=== PATIENT | female | born 1990 | race African-American/Black ===

== ENCOUNTER 2018-07-02 16:58 | Emergency (ER) | payer SELFPAY ==
--- NOTE | 2018-07-02 20:36 | EDM.PDOC ---
ED HPI GENERAL MEDICAL PROBLEM - General Chief Complaint: Respiratory Problem Stated Complaint: ASTHMA Time Seen by Provider: 07/02/18 19:21 Source of Information: Reports: Patient, RN Notes Reviewed History Limitations: Reports: No Limitations - History of Present Illness INITIAL COMMENTS - FREE TEXT/NARRATIVE: The patient states that she has had a cough productive of slightly yellowish phlegm for the past 3 days. She has had body aches since yesterday. She has had a sore throat since yesterday, slightly improved today. No documented fever, and she is afebrile here in the ED, however, she states that she was feeling hot today. She denies having dyspnea, but states that she had some dyspnea on exertion over the past 3 days. No nausea except when she coughs. No recent emesis. No recent constipation, diarrhea, or urinary symptoms. A friend that is staying with her was told that he has bronchitis. The patient states that she has been taking both albuterol Dulera by nebulizer and MDI over the past few days, without relief of symptoms. The patient does not have a peak flow meter or space chamber. The patient does not have a PCP; she goes to the walk-in clinic. Her vaccinations are not up-to-date. She did not receive an influenza vaccine this season. Other Treatments MINE BOSS: inhalers and nebs Frontal Headache Pain Score (Numeric/FACES): 7 - Related Data Allergies Allergy/AdvReac Type Severity Reaction Status Date / Time No Known Allergies Allergy Verified 07/02/18 18:36 Home Meds: Home Meds Albuterol Sulfate 3 ml INH ASDIRECTED 07/02/18 [History] Albuterol Sulfate [Proair Hfa] 1 puff INH ASDIRECTED 07/02/18 [History] Cetirizine [ZyrTEC] 10 mg PO DAILY 07/02/18 [History] Mometasone/Formoterol [Dulera 200 Mcg/5 Mcg Inhaler] 2 puff INH ASDIRECTED 07/02 [History] Past Medical History HEENT History: Reports: Allergic Rhinitis Respiratory History: Reports: Asthma (suspected, not tested) Social & Family History - Tobacco Use Smoking Status *Q: Current Every Day Smoker Tobacco Use Within Last Twelve Months: Cigars (Black & Mild) Years of Tobacco use: 6 Packs/Tins Daily: 0.3 - Caffeine Use Caffeine Use: Reports: Energy Drinks, Soda - Alcohol Use Alcohol Use History: No - Recreational Drug Use Recreational Drug Use: No - Living Situation & Occupation Living situation: Reports: , with Spouse Occupation: Employed ([employer]) ED ROS GENERAL - Review of Systems Review Of Systems: ROS reveals no pertinent complaints other than HPI. ED EXAM, GENERAL - Physical Exam Exam: See Below Exam Limited By: No Limitations General Appearance: Alert, WD/WN, No Apparent Distress Eye Exam: Bilateral Eye: EOMI, Normal Inspection Ears: Normal External Exam, Normal Canal, Hearing Grossly Normal, Normal TMs Nose: Normal Inspection, Normal Mucosa Throat/Mouth: Normal Inspection, Normal Lips, Normal Teeth, Normal Gums, Normal Oropharynx, Normal Voice, No Airway Compromise Head: Atraumatic, Normocephalic Neck: Normal Inspection, Supple, Non-Tender, Full Range of Motion. No: Lymphadenopathy (L), Lymphadenopathy (R) Respiratory/Chest: No Respiratory Distress, Lungs Clear, Normal Breath Sounds, No Accessory Muscle Use. No: Decreased Breath Sounds, Crackles, Rhonchi, Wheezing, Prolonged Expiration Cardiovascular: Normal Peripheral Pulses, Regular Rate, Rhythm, No Edema, No Gallop, No JVD, No Murmur, No Rub Peripheral Pulses: 4+: Radial (L), Radial (R) GI/Abdominal: Normal Bowel Sounds, Soft, Non-Tender, No Organomegaly, No Distention, No Abnormal Bruit, No Mass (Female) Exam: Deferred Rectal (Female) Exam: Deferred Back Exam: Normal Inspection, Full Range of Motion, NT Extremities: Normal Inspection, Normal Range of Motion, No Pedal Edema, Normal Capillary Refill Neurological: Alert, Oriented, Normal Cognition, No Motor/Sensory Deficits Psychiatric: Normal Affect Skin Exam: Warm, Dry, Intact, Normal Color, No Rash Course - Vital Signs Last Recorded V/S: Last Vital Signs Temp 37.2 C 07/02/18 18:31 Pulse 77 07/02/18 18:31 Resp 20 07/02/18 18:31 BP Pulse Ox 96 07/02/18 18:31 - Orders/Labs/Meds Orders: Active Orders 24 hr Category Date Time Status RT Peak Flow Measurement [RC] ASDIRECTED Care 07/02/18 19:36 Active CULTURE STREP A CONFIRMATION [RM] Stat Lab 07/02/18 19:33 Results STREP SCRN A RAPID W CULT CONF [RM] Stat Lab 07/02/18 19:33 Results - Re-Assessments/Exams Free Text/Narrative Re-Assessment/Exam: 07/02/18 20:27 Test results discussed with the patient. Both the patient's influenza swab and rapid strep test are negative. Based on her history, physical examination, and ED tests, the patient appears to have a viral URI. The patient is not suffering from an asthma exacerbation. I explained that there are no medicines to treat a viral URI, that able have to run its course. I advised against [id number] cough or cold remedies, as they have been shown to be of no benefit. The respiratory therapist provided the patient with a peak flow meter and a space chamber, and we discussed how to properly use them. I recommended that the patient check her peak flow if she is feeling dyspneic and wheezing, to determine if it is an asthma exacerbation, prior to taking albuterol. In addition, I advised the patient to eventually get pulmonary function tested, to determine if in fact she has asthma, versus some other respiratory ailment. Departure - Departure Time of Disposition: 20:29 Disposition: Home, Self-Care 01 Condition: Good Clinical Impression: Viral URI with cough - Discharge Information *PRESCRIPTION DRUG MONITORING PROGRAM REVIEWED*: Not Applicable *COPY OF PRESCRIPTION DRUG MONITORING REPORT IN PATIENT SAMARA: Not Applicable Instructions: Upper Respiratory Infection, Adult, [id number] Referrals: PCP,None [Primary Care Provider] - Forms: ED Department Discharge, ED Return to Work/School Form Additional Instructions: You were seen in the emergency room for a cough, shortness of breath, body aches , and sore throat. Workup in the ER included an influenza swab and a rapid strep test. Both your influenza swab and rapid strep test returned negative. You do not have influenza, and you do not have strep throat. Based on your history, physical examination, and ER tests, you are most likely suffering from a viral URI, also known as a common cold. You are not suffering from an asthma attack. Unfortunately, there are no medicines to treat the common cold - it will have to run its course. We do not recommend that you take any [id number] cough or cold remedies, as they have been shown to be of no benefit, but do cause side effects, such as an upset stomach. You have been provided with a peak flow meter. We recommend that you check your peak flow twice a week, even when you are feeling well. If you are feeling well, but cannot get your peak flow into the green zone, talk to your doctor, as this indicates that you may be get an asthma attack within the next 2 weeks. If you are feeling short of breath, but your peak flow is in the green zone, DO NOT take albuterol, as you are not suffering from an asthma attack. If you are feeling short of breath, and your peak flow is in the yellow or red zone, take albuterol as often as necessary to get relief and get your peak flow into the green zone. If you require albuterol more often than every 4 hours, you need to be seen by a doctor. Use your space chamber whenever you take albuterol. We recommend that you seek pulmonary function tests at some point in the future , to determine if in fact you have asthma versus some other respiratory ailment. If any other problem, please do not hesitate to return to the ER. - My Orders Last 24 Hours: My Active Orders 07/02/18 19:33 CULTURE STREP A CONFIRMATION [RM] Stat STREP SCRN A RAPID W CULT CONF [RM] Stat 07/02/18 19:36 RT Peak Flow Measurement [RC] ASDIRECTED - Assessment/Plan Last 24 Hours: My Active Orders 07/02/18 19:33 CULTURE STREP A CONFIRMATION [RM] Stat STREP SCRN A RAPID W CULT CONF [RM] Stat 07/02/18 19:36 RT Peak Flow Measurement [RC] ASDIRECTED
== END 2018-07-02 20:58 | disposition home or self-care (01) ==
LOC: JD.ED 16:58
DX: J06.9 Acute upper respiratory infection, unspecified (principal); F17.210 Nicotine dependence, cigarettes, uncomplicated
CPT/HCPCS: 87077; 87081; 87430; 87804; 99285-25

== ENCOUNTER 2018-08-06 04:06 | Emergency (ER) | payer SELFPAY ==
[2018-08-06] MEDS ORDERED: HYDROmorphone 1 MG/ML Syringe IVPUSH ONE ×2 (04:22→05:06)
[2018-08-06] MEDS ORDERED: Ondansetron 4 MG/2 ML SDV IVPUSH ONE (04:22)
[2018-08-06] MEDS ORDERED: Sodium Chloride 0.9% 1,000 ML IV SCH (04:30)
[2018-08-06] MEDS ORDERED: HYDROmorphone 1 MG/ML Syringe ONE (05:06)
--- NOTE | 2018-08-06 05:21 | EDM.PDOC ---
ED HPI GENERAL MEDICAL PROBLEM - General Chief Complaint: Upper Extremity Injury/Pain Stated Complaint: HAND INJURY Time Seen by Provider: 08/06/18 04:18 Source of Information: Reports: Patient, RN Notes Reviewed History Limitations: Reports: No Limitations - History of Present Illness INITIAL COMMENTS - FREE TEXT/NARRATIVE: The patient states that she was intoxicated, and, she is not sure how, but she fell backwards, apparently putting her right hand out to stop her fall, around 04:00 this morning. When she landed, she appears to have dislocated her right thumb at the MCP joint. She is otherwise uninjured. No prior right thumb injury. The patient's last oral solid food was around 01:30 to 2:00. The patient does not have a PCP. Right Finger-Thumb Pain Score (Numeric/FACES): 7 - Related Data Allergies Allergy/AdvReac Type Severity Reaction Status Date / Time No Known Allergies Allergy Verified 08/06/18 04:13 Home Meds: Home Meds Albuterol Sulfate [Proair Hfa] 1 puff INH ASDIRECTED 07/02/18 [History] Cetirizine [ZyrTEC] 10 mg PO DAILY 07/02/18 [History] Mometasone/Formoterol [Dulera 200 Mcg/5 Mcg Inhaler] 2 puff INH ASDIRECTED 07/02 [History] Montelukast [Singulair] 10 mg PO DAILY 08/06/18 [History] Past Medical History HEENT History: Reports: Allergic Rhinitis Respiratory History: Reports: Asthma (suspected, not tested) Social & Family History - Tobacco Use Tobacco Use Within Last Twelve Months: Cigars (Black & Mild cigars x 2012) - Caffeine Use Caffeine Use: Reports: Energy Drinks, Soda - Alcohol Use Alcohol Use History: Yes Alcohol Use Frequency: Socially (occasionally to excess) - Recreational Drug Use Recreational Drug Use: No - Living Situation & Occupation Living situation: Reports: , with Spouse Occupation: Employed ([employer]) Review of Systems - Review of Systems Review Of Systems: ROS reveals no pertinent complaints other than HPI. ED EXAM, GENERAL - Physical Exam Exam: See Below Exam Limited By: No Limitations General Appearance: Alert, WD/WN, No Apparent Distress Extremities: Other (Obvious dislocation deformity to the right thumb at the MCP joint. Neurovascular status of the right thumb appears to be intact.) Course - Vital Signs Last Recorded V/S: Last Vital Signs Temp 37.7 C 08/06/18 04:13 Pulse 118 H 08/06/18 04:13 Resp 18 08/06/18 04:13 BP 141/100 H 08/06/18 04:13 Pulse Ox 96 08/06/18 04:13 - Orders/Labs/Meds Orders: Active Orders 24 hr Category Date Time Status Fingers Thumb Rt F5 [CR] Stat Exams 08/06/18 04:23 Taken Fingers Thumb Rt F5 [CR] Stat Exams 08/06/18 05:18 Taken Sodium Chloride 0.9% [Normal Saline] 1,000 ml Med 08/06/18 04:30 Active IV ASDIRECTED Medication Orders Sodium Chloride (Normal Saline) 1,000 mls @ 150 mls/hr IV ASDIRECTED MARIA GUADALUPE Last Admin: 08/06/18 04:36 Dose: 150 mls/hr Meds: Medications Generic Name Dose Route Start Last Admin Trade Name Freq PRN Reason Stop Dose Admin Sodium Chloride 1,000 mls @ 150 mls/hr 08/06/18 04:30 08/06/18 04:36 Normal Saline IV 150 mls/hr ASDIRECTED MARIA GUADALUPE Administration Discontinued Medications Generic Name Dose Route Start Last Admin Trade Name Freq PRN Reason Stop Dose Admin Hydromorphone HCl 1 mg 08/06/18 04:22 08/06/18 04:37 Dilaudid IVPUSH 08/06/18 04:23 1 mg ONETIME ONE Administration Hydromorphone HCl 1 mg 08/06/18 05:06 08/06/18 05:11 Dilaudid IVPUSH 08/06/18 05:07 1 mg ONETIME ONE Administration Hydromorphone HCl Confirm 08/06/18 05:06 08/06/18 05:11 Dilaudid Administered 08/06/18 05:07 Not Given Dose 1 mg .ROUTE .STK-MED ONE Ondansetron HCl 4 mg 08/06/18 04:22 08/06/18 04:36 Zofran IVPUSH 08/06/18 04:23 4 mg ONETIME ONE Administration - Re-Assessments/Exams Free Text/Narrative Re-Assessment/Exam: 08/06/18 05:19 3-view radiographs of the patient's right thumb appear to demonstrate complete dislocation at the first MTP joint. No fracture identified. The patient was given 2 mg of IV Dilaudid, and I attempted to reduce the thumb, but due to a combination of patient diaphoresis and pain with the patient moving towards me, I doubt that I was able to reduce the thumb. The patient was placed in a thumb spica, and I have ordered a repeat x-ray. 08/06/18 05:44 As predicted, the repeat x-rays show no improvement in the patient's dislocation. Unfortunately, we do not have Orthopedic Surgery coverage at this time. She will need to be transported to [place] to be evaluated and treated by an Orthopedic Surgeon. The patient prefers [facility]. 08/06/18 05:53 Case discussed with [facility] at [facility] at 05:45. She then discussed the case with the Hand Surgeon Dr. Florence, who recommended that the patient be sent to their ED. The case was also discussed with the Emergency Physician Dr. Montague at 05:50, who accepted the patient for transport to their ED. Because the patient and her friends are all intoxicated, I cannot have the patient go by private vehicle. She will need to go by ground ambulance. 08/06/18 05:59 The x-ray images had been pushed to [facility]. Departure - Departure Time of Disposition: 05:56 Disposition: DC/Tfer to Acute Hospital 02 Condition: Fair Clinical Impression: Closed dislocation of right thumb, Alcohol intoxication - Discharge Information *PRESCRIPTION DRUG MONITORING PROGRAM REVIEWED*: Not Applicable *COPY OF PRESCRIPTION DRUG MONITORING REPORT IN PATIENT SAMARA: Not Applicable Referrals: PCP,None [Primary Care Provider] - Forms: ED Department Discharge - My Orders Last 24 Hours: My Active Orders 08/06/18 04:23 Fingers Thumb Rt F5 [CR] Stat 08/06/18 04:30 Sodium Chloride 0.9% [Normal Saline] 1,000 ml IV ASDIRECTED 08/06/18 05:18 Fingers Thumb Rt F5 [CR] Stat - Assessment/Plan Last 24 Hours: My Active Orders 08/06/18 04:23 Fingers Thumb Rt F5 [CR] Stat 08/06/18 04:30 Sodium Chloride 0.9% [Normal Saline] 1,000 ml IV ASDIRECTED 08/06/18 05:18 Fingers Thumb Rt F5 [CR] Stat
--- NOTE | 2018-08-06 18:27 | CR ---
Right thumb: Three views of the right thumb were obtained. Dislocated MCP joint is seen. No discrete fracture or other abnormality. Impression: 1. Dislocated MCP joint of the thumb. Diagnostic code #3
--- NOTE | 2018-08-06 18:27 | CR ---
Right thumb: Two views of the right thumb were obtained. Comparison: Previous thumb study performed on the same day (4:26 AM). Continuing dislocated MCP joint of thumb is noted. No additional abnormality is seen. Incidental fiberglass splint is present. Impression: 1. Continuing dislocation. Diagnostic code #3
== END 2018-08-06 07:23 ==
LOC: JD.ED 04:06
DX: S63.104A Unspecified dislocation of right thumb, initial encounter (principal); W01.0XXA Fall on same level from slipping, tripping and stumbling without subsequent striking against object, initial encounter
CPT/HCPCS: 29125; 73140; 96361; 96374; 96375; 96376; 99284; J1170; J2405; J7040; 26725